=== PATIENT | male | born 1960 | race Caucasian/White ===

== ENCOUNTER 2019-11-27 10:33 | Outpatient (CLI) | payer OTHER, SELFPAY ==
--- NOTE | ~2019-11-27 | XR_ITS ---
EXAMINATION: XR abdomen/kub 1V DATE: 11/27/2019 10:56 INDICATION: Calculus of ureter on the right. TECHNIQUE: A supine view of the abdomen on 2 radiographs was obtained. COMPARISON: Abdomen radiograph 04/18/2017 FINDINGS: There are phleboliths in the pelvis. There are no dilated loops of bowel. There are gallsto yobani in the gallbladder. The kidneys are obscured by bowel. There is a 3 mm stone in left kidney. A 14 x 5 mm density overlies the right L3 transverse process. IMPRESSION: 1. 14 x 5 mm density overlying the right L3 transverse process, which may be a ureteral stone or stoo l in the colon. 2. 3 mm stone in left kidney. Reviewed, dictated and finalized at location A. IMPRESSION: 1. 14 x 5 mm density overlying the right L3 transverse process, which may be a ureteral stone or stool in the colon. 2. 3 mm stone in left kidney.
== END 2019-11-27 10:34 | disposition home or self-care (01) ==
LOC: ANHIMG 10:39
PROVIDERS: PCP Emergency Medicine; Visit Provider Urology
DX: N20.2 Calculus of kidney with calculus of ureter (principal)
CPT/HCPCS: 74018

== ENCOUNTER 2019-12-06 12:33 | Outpatient (CLI) | payer OTHER, SELFPAY ==
--- NOTE | ~2019-12-06 | CT_ITS ---
EXAMINATION: CT abdomen pelvis wo con DATE: 12/06/2019 13:04 INDICATION: Calculus of ureter. TECHNIQUE: Computed tomography (CT) of the abdomen and pelvis was performed without intravenous contr ast. Automated exposure control and iterative reconstruction technique were employed. The dose-length product was 293.68 mGy-cm. COMPARISON: Abdomen radiographs 12/06/2019 FINDINGS: There is mild elevation of left hemidiaphragm. The visualized portions of the lung bases de monstrate minimal atelectasis on the left. No pleural effusion. The heart size is normal. No pericard ial effusion. There are changes of left hepatectomy. There are gallstones in the gallbladder, which i s normal in size. The spleen, pancreas, and adrenal glands are normal. There is an 11 mm stone in pro ximal right ureter with mild right hydronephrosis. There is a 4 mm stone in left kidney. The prostate is mildly enlarged. There is diverticulosis of the colon without evidence of diverticulitis. The john endix is normal. There are no dilated loops of bowel. There is a supraumbilical ventral hernia contai flip nonobstructed small bowel. There is a left inguinal hernia containing fat. There are no patholog ically enlarged lymph nodes. There is no free intraperitoneal fluid. There is moderate lumbar spondyl osis and mild thoracic spondylosis. IMPRESSION: 1. 11 mm stone in proximal right ureter with mild right hydronephrosis. 2. 3 mm nonobstructing left kidney stone. 3. Supraumbilical ventral hernia containing nonobstructed small bowel. 4. Cholelithiasis. Reviewed, dictated and finalized at location A.
--- NOTE | ~2019-12-06 | XR_ITS ---
EXAMINATION: XR abdomen/kub 1V DATE: 12/06/2019 12:49 INDICATION: Calculus of ureter. TECHNIQUE: A supine view of the abdomen on 2 radiographs was obtained. COMPARISON: Abdomen radiographs 11/27/2019 FINDINGS: There are no dilated loops of bowel. There are gallstones in the gallbladder. The kidneys a re obscured by bowel. There is a 3 mm stone in left kidney. There is a 14 x 5 mm density overlying ri ght L2 transverse process. Calcifications in the pelvis are likely phleboliths. IMPRESSION: 1. 14 x 5 mm density overlying right L2 transverse process suspicious for a ureteral stone. 2. 3 mm left kidney stone. Reviewed, dictated and finalized at location A. IMPRESSION: 1. 14 x 5 mm density overlying right L2 transverse process suspicious for a ure teral stone. 2. 3 mm left kidney stone.
== END 2019-12-06 12:34 | disposition home or self-care (01) ==
PROVIDERS: PCP Emergency Medicine; Visit Provider Urology
DX: N20.1 Calculus of ureter (principal); N20.2 Calculus of kidney with calculus of ureter; K80.20 Calculus of gallbladder without cholecystitis without obstruction; K43.9 Ventral hernia without obstruction or gangrene
CPT/HCPCS: 74018; 74176

== ENCOUNTER 2020-01-02 08:37 | Outpatient (CLI) | payer OTHER, SELFPAY ==
--- NOTE | ~2020-01-02 | XR_ITS ---
XR abdomen/kub 1V DATE: 01/02/2020 09:02 INDICATION: Right kidney stone TECHNIQUE: AP projection, 2 views COMPARISON: 12/06/[address] abdomen pelvis FINDINGS: There is interval placement of a right internal urinary stent, the proximal pigtail not per formed, the proximal catheter tip overlying the lower pole of the right kidney. Probable calcified ca lculus at right ureteropelvic junction. The distal pigtail of the right internal urinary stent overli es the left side of the urinary bladder. Small calcified stone at lower pole of left kidney. There is a prominent amount of fecal material in the right colon. No bowel obstruction is evident. IMPRESSION: Right internal urinary stent placement since 12/06/2019, proximal pigtail not formed Probable calcified calculus at right ureteropelvic junction Small nonobstructing lower pole left renal calcified stone Reviewed, dictated and finalized at Location A. Reviewed, dictated and finalized at location A. IMPRESSION: Right internal urinary stent placement since 12/06/2019, proximal pi gtail not formed Probable calcified calculus at right ureteropelvic junction Small nonobstructing lower pole left renal calcified stone
== END 2020-01-02 08:38 | disposition home or self-care (01) ==
PROVIDERS: PCP Emergency Medicine; Visit Provider Nurse Practitioner Adult Health
DX: N20.0 Calculus of kidney (principal)
CPT/HCPCS: 74018

== ENCOUNTER 2020-01-10 16:25 | Outpatient (CLI) | payer OTHER, SELFPAY ==
--- NOTE | ~2020-01-10 | XR_ITS ---
EXAMINATION: XR abdomen/kub 1V INDICATION: Right kidney stone TECHNIQUE: Supine view of the abdomen is obtained. COMPARISON: 01/02/2020 FINDINGS: A right internal ureteral stent is in expected position. The previously described right ure teropelvic junction stone is not definitely identified. A 4 mm stone projects in the lower pole of th e left kidney. There are multiple pelvic phleboliths as well as prostatic calcifications. The bowel g as pattern is normal. There are partially imaged gallstones in the right upper quadrant. IMPRESSION: 1. Right internal ureteral stent in expected position. Previously described right ureteropelvic junct ion stone not definitely seen. 2. Left nephrolithiasis. Reviewed, dictated and finalized at location A. IMPRESSION: 1. Right internal ureteral stent in expected position. Previously described rig ht ureteropelvic junction stone not definitely seen. 2. Left nephrolithiasis.
== END 2020-01-10 16:26 | disposition home or self-care (01) ==
LOC: ANHIMG 16:30
PROVIDERS: PCP Emergency Medicine; Visit Provider Urology
DX: N20.1 Calculus of ureter (principal); Z96.0 Presence of urogenital implants; N20.0 Calculus of kidney
CPT/HCPCS: 74018

== ENCOUNTER 2020-01-29 16:32 | Outpatient (CLI) | payer OTHER, SELFPAY ==
--- NOTE | ~2020-01-29 | XR_ITS ---
EXAMINATION: XR abdomen/kub 1V DATE: 01/29/2020 16:53 INDICATION: Calculus of ureter. Right flank pain. TECHNIQUE: A supine view of the abdomen on 2 radiographs was obtained. COMPARISON: Abdomen radiograph 01/10/2020, CT abdomen and pelvis 01/29/2020 FINDINGS: There is a right internal ureteral stent in expected position. There is a 4 mm stone in lef t kidney. There are gallstones in the gallbladder. IMPRESSION: 1. Right internal ureteral stent in expected position. 2. 4 mm left kidney stone. Reviewed, dictated and finalized at location A.
--- NOTE | ~2020-01-29 | CT_ITS ---
EXAMINATION: CT abdomen pelvis wo con DATE: 01/29/2020 17:07 INDICATION: Calculus of kidney. TECHNIQUE: Computed tomography (CT) of the abdomen and pelvis was performed without intravenous contr ast. Automated exposure control and iterative reconstruction technique were employed. The dose-length product was 325.00 mGy-cm. COMPARISON: CT abdomen and pelvis 12/06/2019 FINDINGS: The visualized portions of the lung bases demonstrate chronic mild elevation of left hemidi aphragm. No pleural effusion. The heart size is normal. No pericardial effusion. There are changes of resection of left hepatic lobe. There are gallstones in the gallbladder, which is normal in size. Th e spleen, pancreas, and adrenal glands are normal. There is a 12 mm cyst in left kidney. There is a 3 mm stone in right kidney lower pole. There is a right internal ureteral stent in expected position. There is a 4 mm stone in left kidney. There are no pathologically enlarged lymph nodes. There is no f ree intraperitoneal fluid. There is diverticulosis of the colon without evidence of diverticulitis. T here are no dilated loops of bowel. There is a ventral hernia containing nonobstructed small bowel. T here is moderate lumbar spondylosis. IMPRESSION: 1. Small bilateral nonobstructing kidney stones. Right internal ureteral stent in expected position. 2. Ventral hernia containing nonobstructed small bowel. Reviewed, dictated and finalized at location A.
== END 2020-01-29 16:33 | disposition home or self-care (01) ==
PROVIDERS: PCP Emergency Medicine; Visit Provider Urology
DX: N20.0 Calculus of kidney (principal); Z96.0 Presence of urogenital implants; K43.9 Ventral hernia without obstruction or gangrene
CPT/HCPCS: 74018; 74176

== ENCOUNTER 2020-03-24 10:32 | Outpatient (CLI) | payer OTHER, SELFPAY ==
--- NOTE | ~2020-03-24 | XR_ITS ---
EXAMINATION: XR abdomen/kub 1V INDICATION: Calculus of ureter TECHNIQUE: Supine views of the abdomen were obtained on 2 radiographs. COMPARISON: 01/29/2020 FINDINGS: A right internal ureteral stent has been removed. There is a stable 4 mm stone of the left kidney. No additional urolithiasis is identified. Multiple gallstones are noted. 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 The visualized lung bases are clear. A moderate volume of colonic stool is present. Pelvic phleboliths are noted. IMPRESSION: 1. Stable left nephrolithiasis. 2. Right internal ureteral stent removal. Reviewed, dictated and finalized at location B.
== END 2020-03-24 10:33 | disposition home or self-care (01) ==
LOC: ANHIMG 10:43
PROVIDERS: PCP Emergency Medicine; Visit Provider Urology
DX: N20.1 Calculus of ureter (principal)
CPT/HCPCS: 74018

== ENCOUNTER 2025-04-09 12:31 | Outpatient (CLI) | payer MEDICARE, SELFPAY ==
--- NOTE | ~2025-04-09 | US_ITS ---
US scrotum doppler INDICATION: Scrotal mass TECHNIQUE: Testicular sonogram utilizing grayscale and color Doppler FINDINGS: The testes are normal in size and appearance. No focal lesions are seen. The right testes measures 3 x 1.4 x 1.9 cm centimeters, and the left testis measures 2.3 x 1 x 1.9 cm cm. There is normal vascular flow to both testes. There is an extratesticular mass on the right measuring 6 x 7 x 5 mm which is isoechoic to the testicle. Differential diagnosis includes benign etiologies such as adenomatoid tumor, fibrous pseudotumor, sperm granuloma and much less likely neoplasm. Prominent rete testes on the left testicle. There is an 8 mm right epididymal cyst. There is a left hydrocele. IMPRESSION: 1. Extratesticular mass on the right measuring 6 x 7 x 5 mm which is isoechoic to the testicle. Differential diagnosis includes benign etiologies such as adenomatoid tumor, fibrous pseudotumor, sperm granuloma and much less likely neoplasm. Reviewed, dictated and finalized at location A. IMPRESSION: 1. Extratesticular mass on the right measuring 6 x 7 x 5 mm which is isoechoic to the testicle. Differential diagnosis includes benign etiologies such as masha nomatoid tumor, fibrous pseudotumor, sperm granuloma and much less likely neopl asm.
--- OUTSIDE RECORDS SUMMARY | 2025-04-09 12:34 | XMS_ITS | Encounter Summary ---
Author Organization [facility] Address [address] [place] [address] Phone Care Team Providers Care Chief Business Development Officer Name Role Phone Jatin Ruiz MD Primary Care Provider + Marino Perez MD Unavailable Bethany Howell MD Unavailable Kiarra June VACUUM CLOSING MACHINE OPERATOR Primary Care Provide r Encounter Details Date Type Department Care Team (Late st Contact Info) Description 11/11/2019 Telephone [facility] Medicine Oncology [address] [facility] [address] [place] [address] Dayan Ford, B.A. 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 No / Unsure 11/12/2019 9:17 AM CDT documented as of this encounter Plan of Treatment Not on file documented as of this encounter Visit Diagnoses Not on filedocumented in this encounter Care Teams Chief Business Development Officer Relationship Specialty Start Date End Date Jatin Ruiz MD PCP - General 10/12/16 01/03/22 [place] [id number] [address] [address] PCP - General Nurse Practitioner 01/04/22 Marino Perez MD Referring Physician General Surgery 03/09/18 Bethany Howell MD [address] [facility] [address] [place] [address] Medical Oncologist/Data Recovery Planner Medical Oncology 10/09/20 documented as of this encounter
--- OUTSIDE RECORDS SUMMARY | 2025-04-09 12:34 | XMS_ITS | Encounter Summary ---
Author Organization [facility] Address [address] [place] [address] Phone Care Team Providers Care Explosives Mixer Operator Name Role Phone Marino Perez MD Unavailable [phone] Bethany Howell MD Unavailable Kiarra June NEW CAR INSPECTOR Primary Care Provide r Encounter Details Date Type Department Care Team (Late st Contact Info) Description 02/20/2025 Results Follow-Up [facility] Medicine Oncology [address] [place] [address] Sushila Crum RN Diagnostic Mammogram Left W Leonid Social History Tobacco Use Types Packs/Day Years Used Date Smoking Tobacco: Former Cigarettes 3.5 14 1 971 - 1985 Smokeless Tobacco: Never Alcohol Use Standard Drinks/Week Comments Yes 0 (1 standard drink = 0.6 oz pur e alcohol) michi jade AUDIT-C Answer Date Recorded Q1: How often do you have a drink containing alc ohol? Monthly or less 09/04/2024 Q2: How many drinks containi ng alcohol do you have on a typical day when you are drinking? 1 or 2 09/04/2024 Q3: How often do you have si x or more drinks on one occasion? Never 09/04/2024 Personal Safety Answer Date Recorded Have you ever been in or are you currently in a harmful physical or emotional relationship or is someone making you feel afraid or unsafe? 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 ----- Message ----- From: Sushila Crum RN Sent: 02/20/2025 1:31 PM CDT To: Bella Coyne DNP; [facility]# Ok to call pt with results? ----- Message ----- From: Interface, Radiology Results In Sent: 02/20/2025 12:58 PM CDT To: Bethany Howell MD Per Dr. Christine Stover, MAMMOGRAM FINDINGS: There continues to be left gynecomastia with no significant change since the prior exam. IMPRESSION: Gynecomastia Mr. Tinoco reports he is aware of the results. However, he does have a question. Pt would like to know the following, How will they decide if &/or when he can have surgery if the spot on the pancreas doesn't grow? His thought behind this question is, if the drug is working the way it's supposed to, the spot shouldn't change. Pt & RN discussed the stability of his disease and the effectiveness of Octreotide. Also discussed was if the spots in question grow, it could mean the med isn't as effective on those, it could be a different tumor type which Octreotide doesn't affect, or something else altogether. RN stated the idea the nodules may be too small to bx which Pt verbalized understanding of. RN suggested Mr. Tinoco reach out to his surgical rock climbing team member. He reports he does not have MyChart & Dr. Howell explained things to him last time. Message sent to team. Mr. Tinoco is aware he may not hear back from us before tomorrow with an answer & verbalizes agreement w this. * Result Encounter Note - Bella Coyne DNP - 02/24/2025 8:47 AM CDT Please call patient with results. documented in this encounter Plan of Treatment Not on file documented as of this encounter Visit Diagnoses Not on filedocumented in this encounter Care Teams Explosives Mixer Operator Relationship Specialty [place] [id number] [place] [id number] PCP - General Nurse Practitioner 01/04/22 Marino Perez MD Referring Physician General Surgery 03/09/18 Bethany Howell MD [address] [facility] [address] [place] [address] Medical Oncologist/Personnel Security Specialist Medical Oncology 10/09/20 documented as of this encounter
--- OUTSIDE RECORDS SUMMARY | 2025-04-09 12:34 | XMS_ITS | Encounter Summary ---
Author Organization [facility] Address [address] [place] [address] Phone Care Team Providers Care Infrastructure Design Engineer Name Role Phone Marino Perez MD Unavailable Bethany Howell MD Unavailable Kiarra June MILLINERY COPYIST Primary Care Provide r Encounter Details Date Type Department Care Team (Late st Contact Info) Description 09/30/2024 Documentation [facility] Medicine Surgery [address] [facility] [address] [place] [address] Sherman Chan BS Social History Tobacco Use Types Packs/Day Years [...] on file 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 Gender Identity Not on file Sexual Orientation Not on file documented as of this encounter Plan of Treatment Not on file documented as of this encounter Visit Diagnoses Not on filedocumented in this encounter Care Teams Infrastructure Design Engineer Relationship Specialty Start [place] [id number] [address] [address] PCP - General Nurse Practitioner 01/04/22 Marino Perez MD Referring Physician General Surgery 03/09/18 Bethany Howell MD [address] [facility] [facility] [address] [place] [address] Medical Oncologist/Textiles Sales Representative Medical Oncology 10/09/20 documented as of this encounter
--- OUTSIDE RECORDS SUMMARY | 2025-04-09 12:34 | XMS_ITS | Encounter Summary ---
Author Organization [facility] Address [address] [place] [address] Care Team Providers Care Stull Hewer Name Role Phone Jatin Ruiz MD Primary Care Provider + Marino Perez MD Unavailable Bethany Howell MD Unavailable Kiarra June NP Primary Care Provide r Encounter Details Date Type Department Care Team (Late st Contact Info) Description 10/12/2020 Telephone [facility] [address] [place], [place] [id number] Louisa Dan RT Social History Tobacco Use Types Packs/Day Years Used Date Smoking Tobacco: Former Smokeless Tobacco: Never Alcohol Use Standard Drinks/Week Comments Yes 0 (1 standard drink = 0.6 oz pur e alcohol) michi jade Sex and Gender Information Value Date Recorded Sex Assigned at Not on file Legal Sex Male 8:43 AM SENIOR NETWORK ENGINEER Gender Identity Not on file Sexual Orientation Not on file documented as of this encounter Plan of Treatment Not on file documented as of this encounter Visit Diagnoses Not on filedocumented in this encounter Care Teams Stull Hewer Relationship Specialty Start Date End Date Jatin Ruiz MD PCP - General 10/12/16 01/03/22 [place] [id number] [address] PCP - General Nurse Practitioner 01/04/22 Marino Perez MD Referring Physician General Surgery 03/09/18 Bethany Howell MD [address] [facility] [address] [place] [address] Medical Oncologist/Special Forces Warrant Officer Medical Oncology 10/09/20 documented as of this encounter
--- OUTSIDE RECORDS SUMMARY | 2025-04-09 12:34 | XMS_ITS | Clinical Summary ---
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 Active semaglutide (Rybelsus) 3 mg tablet Take 1 tablet (3 mg total) by mouth gantry rigger before breakfast Active propranolol LA (INDERAL LA) 60 mg 24 hr capsule Take 1 capsule (60 mg total) by mouth daily Active atorvastatin (LIPITOR) 10 mg tablet Take 1 tablet (10 mg total) by mouth daily Active Active Problems Problem Noted Date Diagnosed Date Pancreatic mass 12/27/2024 Ventral incisional hernia without obstruction or gangrene 12/25/2024 Lesion of pancreas 09/03/2024 Nephrolithiasis 11/12/2019 Overview (11/12/2019): Added automatically from request for surgery [id number] Neuroendocrine carcinoma 02/23/2017 Hepatoma 12/07/2016 Liver mass 08/18/2016 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 Treatment: 08/28/2016: Left partial glossectomy and left neck dissection level I, II, III, left radial forearm free flap, split-thickness skin graft from left thigh to left arm. Pancreatic cancer Encounters Date Type Department Care Team Description 03/18/2025 11:00 AM CDT Infusion [facility] at [facility] [address] [facility] [place] [phone] Neuroendocrine carcinoma (HCC) (Primary Dx) 02/20/2025 10:21 AM CDT - 02/20/2025 11:59 PM CDT Hospital Encounter [facility] - [address] [place] [address] [place] [address] [address] [place] [address] Neuroendocrine carcinoma (HCC); Squamous cell carcinoma of tongue (HCC) Discharge Disposition: Discharge to home or self care 02/20/2025 Results Follow-Up [facility] Medicine Oncology [address] [place] [address] [address] [place] [phone] Sushila Crum, RN Diagnostic Mammogram Left W Leonid 02/18/2025 11:45 AM CDT Infusion [facility] at [address] [place] [address] Neuroendocrine carcinoma (HCC) (Primary Dx) 02/18/2025 11:30 AM CDT Lab [facility] at [address] [place] [address] Neuroendocrine carcinoma (HCC) 01/22/2025 Telephone [facility] Medicine Oncology [address] [place] [address] [address] [place] [phone] Sushila Crum, RN 01/21/2025 10:30 AM CDT Infusion [facility] at [address] [place] [address] Neuroendocrine carcinoma (HCC) (Primary Dx) 01/21/2025 10:00 AM CDT Office Visit [facility] [address] [facility] [address] [place] [phone] Bethany Howell MD Neuroendocrine carcinoma (HCC) (Primary Dx); Squamous cell carcinoma of tongue (HCC) 01/17/2025 11:06 PM CDT - 01/17/2025 11:59 PM CDT Hospital Encounter [address] [address] Discharge Disposition: Discharge to home or self care 01/14/2025 Telephone [facility] Medicine Oncology [address] [facility] [address] [place] [phone] Sushila Crum RN 01/14/2025 Telephone [facility] Surgeon [address] [place] [address] Karen Beckett MD 01/14/2025 Orders Only [facility] Medicine Surgery [address] [place] [address] [address] [place] [phone] Karen Beckett MD Malignant neoplasm of other parts of pancreas (HCC) (Primary Dx); Pancreatic mass 01/14/2025 Orders Only [facility] Medicine Oncology [address] [place] [address] [place] [phone] Bethany Howell MD Neuroendocrine carcinoma (HCC) (Primary Dx); Squamous cell carcinoma of tongue (HCC) 01/10/2025 10:58 AM CDT - 01/10/2025 11:59 PM CDT Hospital Encounter [facility] - PET [address] [facility] Floor 8 [place] [address] Discharge Disposition: Discharge to home or self care 01/10/2025 10:58 AM CDT - 01/10/2025 11:59 PM CDT Hospital Encounter [facility] - [place] [address] [facility] Floor [address] [place] [address] Pancreatic mass Discharge Disposition: Discharge to home or self care 01/10/2025 10:58 AM CDT - 01/10/2025 11:59 PM CDT Hospital Encounter [facility] - [place] [address] [place] [address] Pancreatic mass Discharge Disposition: Discharge to home or self care 01/10/2025 10:58 AM CDT - 01/10/2025 11:59 PM CDT Hospital Encounter [facility] - PET [address] [place] [address] Pancreatic mass; Malignant neoplasm of other parts of pancreas (HCC) Discharge Disposition: Discharge to home or self care 01/09/2025 12:30 PM CDT Telemedicine [facility] Minimally Invasive Surgery [address] [facility] Building [address] [place] [address] Jasper Talamantes MD Ventral incisional hernia without obstruction or gangrene (Primary Dx) from Last 3 Months Surgical History Surgery Date Site/Laterality Comments BIOPSY LIVER 08/31/2016 N/A TONGUE FLAP TRACHEOSTOMY CLOSURE NECK DISSECTION LIVER RESECTION 08/21/2016 - 08/20/2017 left lateral sectionectomy Medical History Medical History Date Comments Squamous cell cancer of tongue (HCC) Nephrolithiasis 11/12/2019 Metastatic malignant neuroendocrine tumor to juan er (HCC) Hyperlipidemia Type 2 diabetes mellitus Family History Medical History Relation Name Comments Breast cancer Neg Hx Endometrial cancer Neg Hx Ovarian cancer Neg Hx Thyroid cancer Neg Hx Social History Tobacco Use Types Packs/Day Years Used Date Smoking Tobacco: Former Cigarettes 3.5 14 1 971 - 1985 Smokeless Tobacco: Never Tobacco Cessation:Counseling Given: No Alcohol Use Standard Drinks/Week Comments Yes 0 [...] on file 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 Gender Identity Not on file Sexual Orientation Not on file Obstetrics History Last Filed Vital Signs Vital Sign Reading Time Taken Comments Blood Pressure 122/78 03/18/2025 11:29 AM CDT Pulse 64 03/18/2025 11:29 AM CDT Temperature 36.4 C (97.5 F) 03/18/2025 11:29 AM CDT Respiratory Rate 18 03/18/2025 11:29 AM CDT Oxygen Saturation 98% 03/18/2025 11:29 AM CDT Inhaled Oxygen Concentration - - Weight 92.7 kg (204 lb 6.4 oz) 03/18/2025 11:29 AM CDT Height 170.2 cm (5' 7) 02/20/2025 11:04 AM CDT Body Mass Index 32.01 02/20/2025 11:04 AM CDT Plan of Treatment Health Maintenance Due Date Last Done Comments Colon Cancer Screening-Colonoscopy 1960 Depression Screening 1960 Hepatitis C Screening 1958 Prostate Cancer Screening-PSA 1958 Hepatitis B Screening 1976 Pneumococcal vaccine 65+ (1 of 2 - PCV) 1977 Zoster Vaccine (1 of 2) 1977 Well Visit 65+ 2023 Influenza Vaccine (#1) 2025 Fall Risk Assessment 09/04/2025 09/04/2024 DTaP/Tdap/Td Vaccine (2 - Td or Tdap) 05/10/2031 05/10/2021 Abdominal Aortic Aneurysm (A AA) Screen Completed 01/10/2025, 03/12/2024, 08/29/2023, Additional history exists Procedures Procedure Name Priority Date/Time Associated Diagnosis Comments DIAGNOSTIC MAMMOGRAM LEFT W LEONID Schedule Routine, Read Routine (OP Routine) 02/20/2025 11:10 AM CDT Neuroendocrine carcinoma (HCC) Squamous cell carcinoma of tongue (HCC) VOLUME AND PERIOD, URINE, 24 HOUR Routine 02/18/2025 8:00 AM CDT Neuroendocrine carcinoma (HCC) 5 HIAA, URINE, 24 HOUR RESULT Routine 02/18/2025 8:00 AM CDT Neuroendocrine carcinoma (HCC) 5 HIAA, URINE, QUANTITATIVE, 24 HOUR Routine 02/18/2025 8:00 AM CDT Neuroendocrine carcinoma (HCC) PET/CT GA-68 DOTATATE SKULL TO THIGH Schedule Routine, Read Routine (OP Routine) 01/10/2025 1:37 PM CDT Pancreatic mass Malignant neoplasm of other parts of pancreas (HCC) CT CHEST W CONTRAST Schedule Routine, Read Routine (OP Routine) 01/10/2025 11:50 AM CDT Pancreatic mass CT ABDOMEN PELVIS W WO CONTRAST Schedule Routine, Read Routine (OP Routine) 01/10/2025 11:50 AM CDT Pancreatic mass from Last 3 Months Results * Diagnostic Mammogram Left W Leonid (02/20/2025 11:10 AM CDT) Anatomical Region Laterality Modality Breast Left Mammography 02/20/2025 12:5 6 PM CDT Impressions 02/20/2025 12:56 PM CDT Gynecomastia OVERALL FINAL ASSESSMENT: BI-RADS Category 2: Benign. RECOMMENDATION: Continued clinical follow-up is recommended. Electronically signed by: Alaina Stover M.D. Narrative 02/20/2025 12:56 PM CDT EXAMINATION: LEFT UNILATERAL DIGITAL DIAGNOSTIC MAMMOGRAM AND DIGITAL BREAST TOMOSYNTHESIS HISTORY: 64-year-old male patient here for outside facility six-month follow-up for left gynecomastia COMPARISON: 09/18/2024 TECHNIQUE: Full field digital mammographic views of the LEFT breast were performed, including computer aided detection (CAD) and digital breast tomosynthesis (DBT). BREAST PARENCHYMAL COMPOSITION: There are scattered areas of fibroglandular density. MAMMOGRAM FINDINGS: There continues to be left gynecomastia with no significant change since the prior exam. Bethany Howell MD IMG MAMMO PROCEDURES Final Resul t * Volume and period, urine, 24 hour (02/18/2025 8:00 AM CDT) Volume, ur 2,900 mL Comment:Testing performed by : [facility], [address] [place] [address] Period, Urine Collection 1,440 min PINA RANGEL Comment:Testing performed by : [facility], [address] [place] [address] Urine 02/18/2025 8:00 AM CDT 02/18/2025 12:05 PM CDT Bethany Howell MD LAB URINE ORDERABLES Final Resul t Performing Organization Address [facility] [[email or web address]] de Phone Number [facility] [id number] [address] Department [place] [address] * 5 HIAA, urine, 24 hour (02/18/2025 8:00 AM CDT) 5-HIAA, 24hr, ur 3.2 <=10.1 mg/24H [place] [facility] Comment:Testing performed by : [facility], [address], [place] [address] Urine 02/18/2025 8:00 AM CDT 02/18/2025 1:18 PM CDT Bethany Howell MD LAB URINE ORDERABLES Final Resul t Performing Organization Address [facility] [[email or web address]] de Phone Number [facility] [address] Department [place] [address] [place] [facility] * PET/CT Dotatate Skull to Thigh (01/10/2025 1:37 PM CDT) Anatomical Region Laterality Modality Positron Emissio n Tomography (PET) 01/10/2025 4:43 PM CDT Impressions 01/10/2025 4:48 PM CDT 1. Overall stable disease, with essentially unchanged appearance of intensely tracer avid portacaval lymph node and multifocal intensely tracer avid lesions in the pancreas, compatible with the pancreatic neuroendocrine primary tumor with matthias metastasis. 2. No PET/CT evidence of somatostatin receptor expressing progressive metastatic disease. Modified Krenning score = 4 Dictated by: Malinda Redd M.D. The radiology attending physician has personally reviewed this study, and had reviewed and/or edited this written report and agrees with it. Electronically signed by: Saturnino Leong M.D. Narrative 01/10/2025 4:48 PM CDT EXAMINATION: Cu-64 DOTATATE -PET/CT IMAGING DATE OF STUDY: 01/10/2025 SCANNER: [facility] YOUnite (SQ1). This is a high-resolution scanner, which can result in higher SUVs (and even detection of previously unrecognized small lesions) compared to older scanners. RADIOPHARMACEUTICAL: 4.7 mCi Cu-64 Dotatate i.v. Injection site: Right antecubital vein HISTORY: 64-year-old man with metastatic pancreatic neuroendocrine tumor diagnosed via metastatic liver lesion biopsy, post left lateral sectionectomy in 2017, Ki-67 less than 2%. Currently, the patient is on Sandostatin LAR injections. The patient is scheduled for distal pancreatectomy/splenectomy on 01/31/2025. The study is requested for treatment monitoring during therapy. Of note, the patient was diagnosed with left tongue squamous cell carcinoma in 2016, post partial glossectomy and left neck dissection. Subsequent treatment strategy. TECHNIQUE: After intravenous administration of the radiopharmaceutical, noncontrast CT images were obtained for attenuation correction and for fusion with emission PET images to allow for anatomical localization of PET findings. Emission PET images were then obtained. The study was interpreted on the [employer] workstation. The total scanned area was skull vertex to proximal thighs. Images of the body were obtained starting 45 minutes after injection of tracer. REFERENCE TISSUE MAXIMUM SUVs: Liver 5.8 Spleen 9.8 Focal dotatate tracer uptake (visually classified on MIP images) in reference lesions on PET is graded as follows (Modified Krenning Score): 0. No uptake (Negative) 1. Uptake < liver (Minimal) 2. Uptake = liver (Mild) 3. Uptake > liver, but < spleen (Moderate) 4. Uptake > spleen (Intense) COMPARISON: DOTATATE PET on 08/29/2024, chest, abdominopelvic CT scan on 01/10/2025 FINDINGS: Redemonstration of intensely tracer avid portacaval lymph node on image measuring 1.9 x 1.5 cm. Redemonstration of multiple scattered foci of discrete intense uptake throughout the distal pancreatic body and tail on image 158, unchanged compared to 08/29/2024. Additional CT findings: Mild asymmetric left gynecomastia, increased compared to 08/29/2024. Postsurgical changes of the prior left partial glossectomy, left neck dissection, and on reconstruction with left radial forearm free flap. Small hiatal hernia. Cholelithiasis without cholecystitis. Residual contrast in bilateral collecting system and urinary bladder. Wide neck anterior abdominal wall defect with herniated and nonincarcerated bowel loops. Nonobstructive bowel gas pattern. Mild prostatomegaly and dystrophic calcification. Fat-containing bilateral inguinal hernia. Postsurgical changes of left lateral sectionectomy. Spinal spondylosis. 0.3 cm right middle lobe pulmonary nodule on image 130. Sub-5 mm left upper lobe pulmonary nodule on image 122. Procedure Note Saturnino Leong MD - 01/10/2025 EXAMINATION: Cu-64 DOTATATE -PET/CT IMAGING DATE OF STUDY: 01/10/2025 SCANNER: [facility] YOUnite (SQ1). This is a high-resolution scanner, which can result in higher SUVs (and even detection of previously unrecognized small lesions) compared to older scanners. RADIOPHARMACEUTICAL: 4.7 mCi Cu-64 Dotatate i.v. Injection site: Right antecubital vein HISTORY: 64-year-old man with metastatic pancreatic neuroendocrine tumor diagnosed via metastatic liver lesion biopsy, post left lateral sectionectomy in 2017, Ki-67 less than 2%. Currently, the patient is on Sandostatin LAR injections. The patient is scheduled for distal pancreatectomy/splenectomy on 01/31/2025. The study is requested for treatment monitoring during therapy. Of note, the patient was diagnosed with left tongue squamous cell carcinoma in 2016, post partial glossectomy and left neck dissection. Subsequent treatment strategy. TECHNIQUE: After intravenous administration of the radiopharmaceutical, noncontrast CT images were obtained for attenuation correction and for fusion with emission PET images to allow for anatomical localization of PET findings. Emission PET images were then obtained. The study was interpreted on the [employer] workstation. The total scanned area was skull vertex to proximal thighs. Images of the body were obtained starting 45 minutes after injection of tracer. REFERENCE TISSUE MAXIMUM SUVs: Liver 5.8 Spleen 9.8 Focal dotatate tracer uptake (visually classified on MIP images) in reference lesions on PET is graded as follows (Modified Krenning Score): 0. No uptake (Negative) 1. Uptake < liver (Minimal) 2. Uptake = liver (Mild) 3. Uptake > liver, but < spleen (Moderate) 4. Uptake > spleen (Intense) COMPARISON: DOTATATE PET on 08/29/2024, chest, abdominopelvic CT scan on 01/10/2025 FINDINGS: Redemonstration of intensely tracer avid portacaval lymph node on image measuring 1.9 x 1.5 cm. Redemonstration of multiple scattered foci of discrete intense uptake throughout the distal pancreatic body and tail on image 158, unchanged compared to 08/29/2024. Additional CT findings: Mild asymmetric left gynecomastia, increased compared to 08/29/2024. Postsurgical changes of the prior left partial glossectomy, left neck dissection, and on reconstruction with left radial forearm free flap. Small hiatal hernia. Cholelithiasis without cholecystitis. Residual contrast in bilateral collecting system and urinary bladder. Wide neck anterior abdominal wall defect with herniated and nonincarcerated bowel loops. Nonobstructive bowel gas pattern. Mild prostatomegaly and dystrophic calcification. Fat-containing bilateral inguinal hernia. Postsurgical changes of left lateral sectionectomy. Spinal spondylosis. 0.3 cm right middle lobe pulmonary nodule on image 130. Sub-5 mm left upper lobe pulmonary nodule on image 122. IMPRESSION: 1. Overall stable disease, with essentially unchanged appearance of intensely tracer avid portacaval lymph node and multifocal intensely tracer avid lesions in the pancreas, compatible with the pancreatic neuroendocrine primary tumor with matthias metastasis. 2. No PET/CT evidence of somatostatin receptor expressing progressive metastatic disease. Modified Krenning score = 4 Dictated by: Malinda Redd M.D. The radiology attending physician has personally reviewed this study, and had reviewed and/or edited this written report and agrees with it. Electronically signed by: Saturnino Leong M.D. Karen Beckett MD IM PET PROCEDURES Final Result * CT Chest W Contrast (01/10/2025 11:50 AM CDT) Anatomical Region Laterality Modality Body N/A Computed Tomogra phy 01/10/2025 12:1 1 PM CDT Impressions 01/10/2025 12:11 PM CDT 1. Unchanged hypervascular 6 mm pancreatic tail lesion corresponds to the known pancreatic neuroendocrine tumor. There are also several additional tiny arterially enhancing foci in the pancreatic tail corresponding with areas of increased tracer uptake on PET/CT 08/29/2024, corresponding to additional pancreatic neuroendocrine tumors. There is an additional tiny foci of arterial enhancement in the uncinate process. 2. Hypervascular 6 mm portacaval node is consistent with matthias metastatic disease and corresponds to the tracer uptake described in the caudate on PET/CT 08/29/2024. This node is increased in size from 03/12/2024. 3. Postsurgical changes of left lateral sectionectomy without evidence of recurrent disease. 4. No definite evidence of metastatic disease in the chest. Unchanged tiny sub-5 mm pulmonary nodules. Electronically signed by: Shandra Oseguera 01/10/2025 12:11 PM CDT EXAMINATION: CT ABDOMEN PELVIS W WO CONTRAST, CT CHEST W CONTRAST HISTORY: 64-year-old with metastatic pancreatic neuroendocrine tumor status post left lateral sectionectomy in 2017 and recent surveillance PET/CT showing 2 foci of tracer uptake in the pancreatic tail positive for neuroendocrine cell clusters. TECHNIQUE: Transaxial computed tomographic images of the chest were obtained with intravenous contrast according to the standard protocol and abdomen and pelvis without and with intravenous contrast according to the pancreas protocol after the uneventful administration of 118 mL Opti-Ray 350 intravenous contrast. COMPARISON: PET/CT 08/29/2024, MRI 09/09/2024, CT 03/12/2024 FINDINGS: 3 mm right upper lobe nodule unchanged (series 3, image 42). 3 mm right middle lobe nodule unchanged (series 3, image 77). Claritza-fissural left upper lobe nodule unchanged (series 3, image 35). Tiny 2 mm left upper lobe nodule unchanged (series 3, image 64). No new pulmonary nodule. Trachea central airways clear. Thyroid is enlarged with subcentimeter nodules, unchanged. No supraclavicular or axillary lymphadenopathy. No mediastinal or hilar lymphadenopathy. Thoracic aorta normal caliber with three-vessel arch. Heart size normal without pericardial effusion. The esophagus is decompressed. Gynecomastia, left greater than right. No acute fracture or suspicious osseous lesion in the chest. There are postsurgical changes of left lateral sectionectomy. There is no hypervascular liver lesion. There is a hypervascular portal caval node that measures 6 mm (series 3, image 97), which likely corresponds to the described tracer uptake in the caudate lobe on PET/CT 08/29/2024. This node is increased in size from 2023. There is no biliary ductal dilation. Cholelithiasis. There is a hypervascular lesion in the pancreatic tail is best seen on the portal venous phase and measures 7 mm (series 5, image 31), which is unchanged from 09/09/2024 MRI. There are several additional punctate tiny enhancing pancreatic tail lesions on the arterial phase (series 3, image 91 and 94), which likely represent additional tiny pancreatic neuroendocrine tumors. There is also a tiny enhancing focus of arterial enhancement in the uncinate process (series 3, image 161). There is no additional hypervascular peripancreatic lymphadenopathy. Normal spleen. Normal adrenals. Right interpolar renal cyst. Kidneys enhance symmetrically without hydronephrosis or nephrolithiasis. Portal vein, superior mesenteric vein splenic vein are patent. No mesenteric or retroperitoneal lymphadenopathy. Celiac, superior mesenteric, renal and inferior mesenteric arteries are patent. Normal caliber abdominal aorta. The urinary bladder is partially decompressed and mildly thick-walled. Prostate is enlarged. No pelvic free fluid or lymphadenopathy. Colonic diverticulosis. No bowel obstruction. Normal appendix. There is a broad-based ventral hernia that contains multiple loops of nonobstructed small bowel. Stomach is fluid-filled. The duodenal sweep is normal. Soft tissue thickening with gas in the left flank with sequela of injection. 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 No acute fracture or suspicious osseous lesion. Grade 1 anterolisthesis of L4-L5. 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 TECHNIQUE: Transaxial computed tomographic images of the chest were obtained with intravenous contrast according to the standard protocol and abdomen and pelvis without and with intravenous contrast according to the pancreas protocol after the uneventful administration of 118 mL Opti-Ray 350 intravenous contrast. COMPARISON: PET/CT 08/29/2024, MRI 09/09/2024, CT 03/12/2024 FINDINGS: 3 mm right upper lobe nodule unchanged (series 3, image 42). 3 mm right middle lobe nodule unchanged (series 3, image 77). Claritza-fissural left upper lobe nodule unchanged (series 3, image 35). Tiny 2 mm left upper lobe nodule unchanged (series 3, image 64). No new pulmonary nodule. Trachea central airways clear. Thyroid is enlarged with subcentimeter nodules, unchanged. No supraclavicular or axillary lymphadenopathy. No mediastinal or hilar lymphadenopathy. Thoracic aorta normal caliber with three-vessel arch. Heart size normal without pericardial effusion. The esophagus is decompressed. Gynecomastia, left greater than right. No acute fracture or suspicious osseous lesion in the chest. There are postsurgical changes of left lateral sectionectomy. There is no hypervascular liver lesion. There is a hypervascular portal caval node that measures 6 mm (series 3, image 97), which likely corresponds to the described tracer uptake in the caudate lobe on PET/CT 08/29/2024. This node is increased in size from 2023. There is no biliary ductal dilation. Cholelithiasis. There is a hypervascular lesion in the pancreatic tail is best seen on the portal venous phase and measures 7 mm (series 5, image 31), which is unchanged from 09/09/2024 MRI. There are several additional punctate tiny enhancing pancreatic tail lesions on the arterial phase (series 3, image 91 and 94), which likely represent additional tiny pancreatic neuroendocrine tumors. There is also a tiny enhancing focus of arterial enhancement in the uncinate process (series 3, image 161). There is no additional hypervascular peripancreatic lymphadenopathy. Normal spleen. Normal adrenals. Right interpolar renal cyst. Kidneys enhance symmetrically without hydronephrosis or nephrolithiasis. Portal vein, superior mesenteric vein splenic vein are patent. No mesenteric or retroperitoneal lymphadenopathy. Celiac, superior mesenteric, renal and inferior mesenteric arteries are patent. Normal caliber abdominal aorta. The urinary bladder is partially decompressed and mildly thick-walled. Prostate is enlarged. No pelvic free fluid or lymphadenopathy. Colonic diverticulosis. No bowel obstruction. Normal appendix. There is a broad-based ventral hernia that contains multiple loops of nonobstructed small bowel. Stomach is fluid-filled. The duodenal sweep is normal. Soft tissue thickening with gas in the left flank with sequela of injection. 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 No acute fracture or suspicious osseous lesion. Grade 1 anterolisthesis of L4-L5. IMPRESSION: 1. Unchanged hypervascular 6 mm pancreatic tail lesion corresponds to the known pancreatic neuroendocrine tumor. There are also several additional tiny arterially enhancing foci in the pancreatic tail corresponding with areas of increased tracer uptake on PET/CT 08/29/2024, corresponding to additional pancreatic neuroendocrine tumors. There is an additional tiny foci of arterial enhancement in the uncinate process. 2. Hypervascular 6 mm portacaval node is consistent with matthias metastatic disease and corresponds to the tracer uptake described in the caudate on PET/CT 08/29/2024. This node is increased in size from 03/12/2024. 3. Postsurgical changes of left lateral sectionectomy without evidence of recurrent disease. 4. No definite evidence of metastatic disease in the chest. Unchanged tiny sub-5 mm pulmonary nodules. Electronically signed by: Estefania Loyd M.D. Karen Beckett MD IMG CT PROCEDURES F inal Result * CT Abdomen Pelvis W WO Contrast (01/10/2025 11:50 AM CDT) Anatomical Region Laterality Modality Body N/A Computed Tomogra phy 01/10/2025 12:1 1 PM CDT Impressions 01/10/2025 12:11 PM CDT 1. Unchanged hypervascular 6 mm pancreatic tail lesion corresponds to the known pancreatic neuroendocrine tumor. There are also several additional tiny arterially enhancing foci in the pancreatic tail corresponding with areas of increased tracer uptake on PET/CT 08/29/2024, corresponding to additional pancreatic neuroendocrine tumors. There is an additional tiny foci of arterial enhancement in the uncinate process. 2. Hypervascular 6 mm portacaval node is consistent with matthias metastatic disease and corresponds to the tracer uptake described in the caudate on PET/CT 08/29/2024. This node is increased in size from 03/12/2024. 3. Postsurgical changes of left lateral sectionectomy without evidence of recurrent disease. 4. No definite evidence of metastatic disease in the chest. Unchanged tiny sub-5 mm pulmonary nodules. Electronically signed by: Estefania Loyd M.D. 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 TECHNIQUE: Transaxial computed tomographic images of the chest were obtained with intravenous contrast according to the standard protocol and abdomen and pelvis without and with intravenous contrast according to the pancreas protocol after the uneventful administration of 118 mL Opti-Ray 350 intravenous contrast. COMPARISON: PET/CT 08/29/2024, MRI 09/09/2024, CT 03/12/2024 FINDINGS: 3 mm right upper lobe nodule unchanged (series 3, image 42). 3 mm right middle lobe nodule unchanged (series 3, image 77). Claritza-fissural left upper lobe nodule unchanged (series 3, image 35). Tiny 2 mm left upper lobe nodule unchanged (series 3, image 64). No new pulmonary nodule. Trachea central airways clear. Thyroid is enlarged with subcentimeter nodules, unchanged. No supraclavicular or axillary lymphadenopathy. No mediastinal or hilar lymphadenopathy. Thoracic aorta normal caliber with three-vessel arch. Heart size normal without pericardial effusion. The esophagus is decompressed. Gynecomastia, left greater than right. No acute fracture or suspicious osseous lesion in the chest. There are postsurgical changes of left lateral sectionectomy. There is no hypervascular liver lesion. There is a hypervascular portal caval node that measures 6 mm (series 3, image 97), which likely corresponds to the described tracer uptake in the caudate lobe on PET/CT 08/29/2024. This node is increased in size from 2023. There is no biliary ductal dilation. Cholelithiasis. There is a hypervascular lesion in the pancreatic tail is best seen on the portal venous phase and measures 7 mm (series 5, image 31), which is unchanged from 09/09/2024 MRI. There are several additional punctate tiny enhancing pancreatic tail lesions on the arterial phase (series 3, image 91 and 94), which likely represent additional tiny pancreatic neuroendocrine tumors. There is also a tiny enhancing focus of arterial enhancement in the uncinate process (series 3, image 161). There is no additional hypervascular peripancreatic lymphadenopathy. Normal spleen. Normal adrenals. Right interpolar renal cyst. Kidneys enhance symmetrically without hydronephrosis or nephrolithiasis. Portal vein, superior mesenteric vein splenic vein are patent. No mesenteric or retroperitoneal lymphadenopathy. Celiac, superior mesenteric, renal and inferior mesenteric arteries are patent. Normal caliber abdominal aorta. The urinary bladder is partially decompressed and mildly thick-walled. Prostate is enlarged. No pelvic free fluid or lymphadenopathy. Colonic diverticulosis. No bowel obstruction. Normal appendix. There is a broad-based ventral hernia that contains multiple loops of nonobstructed small bowel. Stomach is fluid-filled. The duodenal sweep is normal. Soft tissue thickening with gas in the left flank with sequela of injection. 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 No acute fracture or suspicious osseous lesion. Grade 1 anterolisthesis of L4-L5. 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 TECHNIQUE: Transaxial computed tomographic images of the chest were obtained with intravenous contrast according to the standard protocol and abdomen and pelvis without and with intravenous contrast according to the pancreas protocol after the uneventful administration of 118 mL Opti-Ray 350 intravenous contrast. COMPARISON: PET/CT 08/29/2024, MRI 09/09/2024, CT 03/12/2024 FINDINGS: 3 mm right upper lobe nodule unchanged (series 3, image 42). 3 mm right middle lobe nodule unchanged (series 3, image 77). Claritza-fissural left upper lobe nodule unchanged (series 3, image 35). Tiny 2 mm left upper lobe nodule unchanged (series 3, image 64). No new pulmonary nodule. Trachea central airways clear. Thyroid is enlarged with subcentimeter nodules, unchanged. No supraclavicular or axillary lymphadenopathy. No mediastinal or hilar lymphadenopathy. Thoracic aorta normal caliber with three-vessel arch. Heart size normal without pericardial effusion. The esophagus is decompressed. Gynecomastia, left greater than right. No acute fracture or suspicious osseous lesion in the chest. There are postsurgical changes of left lateral sectionectomy. There is no hypervascular liver lesion. There is a hypervascular portal caval node that measures 6 mm (series 3, image 97), which likely corresponds to the described tracer uptake in the caudate lobe on PET/CT 08/29/2024. This node is increased in size from 2023. There is no biliary ductal dilation. Cholelithiasis. There is a hypervascular lesion in the pancreatic tail is best seen on the portal venous phase and measures 7 mm (series 5, image 31), which is unchanged from 09/09/2024 MRI. There are several additional punctate tiny enhancing pancreatic tail lesions on the arterial phase (series 3, image 91 and 94), which likely represent additional tiny pancreatic neuroendocrine tumors. There is also a tiny enhancing focus of arterial enhancement in the uncinate process (series 3, image 161). There is no additional hypervascular peripancreatic lymphadenopathy. Normal spleen. Normal adrenals. Right interpolar renal cyst. Kidneys enhance symmetrically without hydronephrosis or nephrolithiasis. Portal vein, superior mesenteric vein splenic vein are patent. No mesenteric or retroperitoneal lymphadenopathy. Celiac, superior mesenteric, renal and inferior mesenteric arteries are patent. Normal caliber abdominal aorta. The urinary bladder is partially decompressed and mildly thick-walled. Prostate is enlarged. No pelvic free fluid or lymphadenopathy. Colonic diverticulosis. No bowel obstruction. Normal appendix. There is a broad-based ventral hernia that contains multiple loops of nonobstructed small bowel. Stomach is fluid-filled. The duodenal sweep is normal. Soft tissue thickening with gas in the left flank with sequela of injection. 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 No acute fracture or suspicious osseous lesion. Grade 1 anterolisthesis of L4-L5. IMPRESSION: 1. Unchanged hypervascular 6 mm pancreatic tail lesion corresponds to the known pancreatic neuroendocrine tumor. There are also several additional tiny arterially enhancing foci in the pancreatic tail corresponding with areas of increased tracer uptake on PET/CT 08/29/2024, corresponding to additional pancreatic neuroendocrine tumors. There is an additional tiny foci of arterial enhancement in the uncinate process. 2. Hypervascular 6 mm portacaval node is consistent with matthias metastatic disease and corresponds to the tracer uptake described in the caudate on PET/CT 08/29/2024. This node is increased in size from 03/12/2024. 3. Postsurgical changes of left lateral sectionectomy without evidence of recurrent disease. 4. No definite evidence of metastatic disease in the chest. Unchanged tiny sub-5 mm pulmonary nodules. Electronically signed by: Estefania Loyd M.D. Karen Beckett MD IMG CT PROCEDURES F inal Result from Last 3 Months Insurance [facility] HMO [facility] PPO [employer] U[employer] MEDICARE ADVANTAGE U[employer] MEDICARE ADVANTAGE Advance Directives For more information, please contact: [phone] * Full Code (Latest Code Status on File) Date Activated Date Inactivated Comments 09/04/2024 7:35 AM 09/04/2024 2:32 PM Care Teams Environmental Studies Professor Relationship Specialty [place] [id number] [address]AL [address] [id number] PCP - General Nurse Practitioner 01/04/22 Marino Perez MD Referring Physician General Surgery 03/09/18 Bethany Howell MD [address] [facility] [address] [place] [address] Medical Oncologist/Paralegal Assistant Medical Oncology 10/09/20
--- OUTSIDE RECORDS SUMMARY | 2025-04-09 12:34 | XMS_ITS ---
Author Organization [facility] Address [address] [place] [address] Care Team Providers [employer] Director Name Role Phone Marino Perez MD Unavailable Bethany Howell MD Unavailable Kiarra June [employer]GER [employer] Primary Care Provide r Active Problems Problem Noted Date Diagnosed Date Pancreatic mass 12/27/2024 Ventral incisional hernia without obstruction or gangrene 12/25/2024 Lesion of pancreas 09/03/2024 Nephrolithiasis 11/12/2019 Overview (11/12/2019): Added automatically from request for surgery [id number] Neuroendocrine carcinoma 02/23/2017 Hepatoma 12/07/2016 Liver mass 08/18/2016 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 Treatment: 08/28/2016: Left partial glossectomy and left neck dissection level I, II, III, left radial forearm free flap, split-thickness skin graft from left thigh to left arm. Pancreatic cancer Current Treatment and Therapy Plans Octreotide 28 Day Cycles - Carcinoid* Plan Start Date:07/23/2017 Plan Provider:Bethany Howell MD Linked Problems Neuroendocrine carcinoma (HC C) Treatment Medications Current Day (Day 1 , Cycle 100 - Planned for 04/15/2025) Next Day (Day 1, Cycle 101 - Planned for 05/13/2025) octreotide (SandoSTATIN LAR)octreotide LAR (SandoSTATIN LAR) octreotide LAR (SandoSTATIN LAR) extended release intramuscular injection 30 mg octreotide LAR (SandoSTATIN LAR) extended release intramuscular injection 30 mg Past Treatment and Therapy Plans Line Care Plan Name Start Date Discontinue Date Treatment Medications Discontinue Reason Plan Provider IV Maintenance Therapy Plan 12/24/2021 10/31/2023 No medications scheduled. Automatic discontinuation of dormant plans Bethany Howell MD Lifetime Dose Tracking * Chemical Lifetime Dose Automatic Entry Manual Entr y DLP 11,773 mGycm 11,773 mGycm 0 mGycm
== END 2025-04-09 12:32 | disposition home or self-care (01) ==
PROVIDERS: PCP Nurse Practitioner Family; Visit Provider Urology
DX: N50.89 Other specified disorders of the male genital organs (principal)
CPT/HCPCS: 76870; 93976